=== PATIENT | female | born 1960 | race Hispanic/Latino ===

== ENCOUNTER → 2018-02-15 | Outpatient (CLI) | payer OTHER | END | disposition home or self-care (01) | LOC: RAH 12:14 | PROVIDERS: ATTEND Internal Medicine | DX: M25.561 Pain in right knee (principal); M25.562 Pain in left knee; M79.644 Pain in right finger(s) | CPT/HCPCS: 73140; 73562 ==

== ENCOUNTER → 2018-02-25 | Outpatient (CLI) | payer OTHER | END | disposition home or self-care (01) | LOC: RAH 02-19 13:01 | PROVIDERS: ATTEND Internal Medicine | DX: R92.8 Other abnormal and inconclusive findings on diagnostic imaging of breast (principal) | CPT/HCPCS: 76641; 77065 ==

== ENCOUNTER → 2019-02-11 | Outpatient (CLI) | payer OTHER ==
[~2019-02-11] MED LIST: IOHEXOL 350 MG/ML 100ML INFUS..BTL IV ONE
== END | disposition home or self-care (01) ==
LOC: OIH 10:01
PROVIDERS: ATTEND Internal Medicine
DX: K76.0 Fatty (change of) liver, not elsewhere classified (principal); Z90.49 Acquired absence of other specified parts of digestive tract
CPT/HCPCS: 74177; Q9967

== ENCOUNTER → 2019-05-20 | Outpatient (CLI) | payer OTHER | END | disposition home or self-care (01) | LOC: RAH 15:59 | PROVIDERS: ATTEND Internal Medicine | DX: R68.84 Jaw pain (principal); W19.XXXS Unspecified fall, sequela | CPT/HCPCS: 70110 ==

== ENCOUNTER → 2019-06-15 | Outpatient (CLI) | payer OTHER | END | disposition home or self-care (01) | LOC: RAH 09:18 | PROVIDERS: ATTEND Internal Medicine | DX: S89.91XA Unspecified injury of right lower leg, initial encounter (principal); M17.11 Unilateral primary osteoarthritis, right knee; W19.XXXA Unspecified fall, initial encounter; Y93.89 Activity, other specified; Y92.89 Other specified places as the place of occurrence of the external cause; Y99.8 Other external cause status | CPT/HCPCS: 73562 ==

== ENCOUNTER → 2019-06-29 | Outpatient (CLI) | payer OTHER | END | disposition home or self-care (01) | LOC: RAH 10:53 | PROVIDERS: ATTEND Internal Medicine | DX: Z12.31 Encounter for screening mammogram for malignant neoplasm of breast (principal) | CPT/HCPCS: 77067 ==

== ENCOUNTER → 2019-10-19 | Outpatient (CLI) | payer OTHER | END | disposition home or self-care (01) | LOC: RAH 14:30 | PROVIDERS: ATTEND Internal Medicine | DX: I65.23 Occlusion and stenosis of bilateral carotid arteries (principal) | CPT/HCPCS: 93880 ==

== ENCOUNTER → 2019-12-20 | Outpatient (CLI) | payer OTHER | END | disposition home or self-care (01) | LOC: SHCH 10:59 | PROVIDERS: ATTEND Internal Medicine Cardiovascular Disease | DX: I10 Essential (primary) hypertension (principal) | CPT/HCPCS: 93306; 93356 ==

== ENCOUNTER → 2019-12-22 | Outpatient (CLI) | payer OTHER ==
[~2019-12-22] VITALS: Ht 180.3 cm; Wt 88.9 kg
[~2019-12-22] MED LIST changes: +AMINOPHYLLINE 250MG/10 ML VIAL IV ONE; -IOHEXOL 350 MG/ML 100ML INFUS..BTL IV ONE; +REGADENOSON 0.4 MG/5 ML PF SYG IVP SCH
[2019-12-22 11:53] VITALS: BP 183/94
[2019-12-22 11:55] VITALS: BP 186/88
[2019-12-22 11:57] VITALS: BP 181/87
--- NOTE | 2019-12-22 13:04 | NUR ---
PT WAS GIVEN AMINOPHYLLINE 25MG SLOW IV PUSH @ 1153 FOR CHEST PRESSURE OF A 10 AND HEADACHE. BY 1157 ALL SYMPTOMS HAD SUBSIDED. PT WAS INSTRUCTED TO EAT AND RETURN TO THE IMAGING CENTER IN ONE HOUR.
== END | disposition home or self-care (01) ==
LOC: SHCH 08:52
PROVIDERS: ATTEND Internal Medicine Cardiovascular Disease
DX: I25.89 Other forms of chronic ischemic heart disease (principal); I10 Essential (primary) hypertension
CPT/HCPCS: 78452; 93017; 96374; A9500 ×2; J0280; J2785

== ENCOUNTER → 2021-01-02 | Outpatient (CLI) | payer OTHER | END | disposition home or self-care (01) | LOC: RAH 10:31 | PROVIDERS: ATTEND Internal Medicine | DX: Z12.31 Encounter for screening mammogram for malignant neoplasm of breast (principal) | CPT/HCPCS: 77067 ==

== ENCOUNTER → 2021-01-14 | Outpatient (CLI) | payer OTHER | END | disposition home or self-care (01) | LOC: RAH 09:31 | PROVIDERS: ATTEND Internal Medicine Cardiovascular Disease | DX: Z13.6 Encounter for screening for cardiovascular disorders (principal) | CPT/HCPCS: 75571 ==

== ENCOUNTER → 2021-01-17 | Outpatient (CLI) | payer OTHER | END | disposition home or self-care (01) | LOC: SHCH 10:00 | PROVIDERS: ATTEND Internal Medicine Cardiovascular Disease | DX: I65.23 Occlusion and stenosis of bilateral carotid arteries (principal) | CPT/HCPCS: 93880 ==

== ENCOUNTER 2021-03-15 15:46 | Emergency (ER) | payer OTHER ==
[2021-03-15] MEDS ORDERED: CYCLOBENZAPRINE HCL 10 MG TABLET ONE (16:09)
[2021-03-15] MEDS ORDERED: KETOROLAC TROMETHAMINE 30MG/ML ONE (16:09)
[2021-03-15] MEDS ORDERED: SODIUM CHLORIDE 0.9% 50 ML IV ONE (16:10)
[2021-03-15 16:12] LABS: BASOPHILS % (AUTO) 0.8 % (0.0-5.0); EOSINOPHILS % (AUTO) 4.1 % (0.0-8.0); HEMATOCRIT 35.5 % (36-48); MEAN CORPUSCULAR HEMOGLOBIN 28.9 pg (27.0-33.0); MEAN CORPUSCULAR HGB CONC 32.7 g/dL (32.0-36.0); MEAN CORPUSCULAR VOLUME 88.5 fL (79-99); MONOCYTES % (AUTO) 8.5 % (3.0-13.0); NEUTROPHILS % (AUTO) 56.3 % (40.0-77.0); PLATELET COUNT (AUTO) 212 K/uL (130-400); RED BLOOD CELL COUNT(AUTO) 4.01 MIL/uL (4.00-5.50); RED CELL DISTRIBUTION WIDTH 12.3 % (11.0-15.5); WHITE BLOOD COUNT (AUTO) 6.1 K/uL (4.8-10.8)
[2021-03-15 16:28] LABS: CREATININE 1.1 mg/dL (0.5-1.5); POTASSIUM 3.9 mmol/L (3.5-5.1)
[2021-03-15 16:32] LABS: ALBUMIN 4.2 g/dL (3.5-5.0); BILIRUBIN,TOTAL 0.4 mg/dL (0.2-1.0); TOTAL PROTEIN, SERUM 7.7 g/dL (6.0-8.3)
[2021-03-15] MEDS ORDERED: ONDANSETRON ODT 4 MG TAB ONE (17:50)
== END 2021-03-15 18:03 | disposition home or self-care (01) ==
LOC: EDH 15:46
DX: G44.209 Tension-type headache, unspecified, not intractable (principal); I10 Essential (primary) hypertension; E11.9 Type 2 diabetes mellitus without complications; Z90.49 Acquired absence of other specified parts of digestive tract; Z90.710 Acquired absence of both cervix and uterus; Z88.1 Allergy status to other antibiotic agents
CPT/HCPCS: 36415; 70450; 80053; 85025; 96365; 96375; 99284; J1885

== ENCOUNTER → 2021-04-29 | Outpatient (CLI) | payer OTHER | END | disposition home or self-care (01) | LOC: RAH 15:35 | PROVIDERS: ATTEND Internal Medicine | DX: G45.3 Amaurosis fugax (principal) | CPT/HCPCS: 93880 ==

== ENCOUNTER → 2021-05-28 | Outpatient (CLI) | payer OTHER ==
[2021-05-28 16:38] LABS: BILIRUBIN,TOTAL 0.4 mg/dL (0.2-1.0); CREATININE 0.9 mg/dL (0.5-1.5); POTASSIUM 4.4 mmol/L (3.5-5.1); TOTAL PROTEIN, SERUM 7.3 g/dL (6.0-8.3)
== END | disposition home or self-care (01) ==
LOC: LAB 15:51
PROVIDERS: ATTEND Internal Medicine
DX: I65.29 Occlusion and stenosis of unspecified carotid artery (principal); I10 Essential (primary) hypertension
CPT/HCPCS: 36415; 80053

== ENCOUNTER → 2021-05-29 | Outpatient (CLI) | payer OTHER ==
[~2021-05-29] MED LIST changes: -AMINOPHYLLINE 250MG/10 ML VIAL IV ONE; +IOHEXOL-350 75 ML VIAL IV ONE; -REGADENOSON 0.4 MG/5 ML PF SYG IVP SCH
== END | disposition home or self-care (01) ==
LOC: RAH 10:06
PROVIDERS: ATTEND Internal Medicine Cardiovascular Disease
DX: I65.23 Occlusion and stenosis of bilateral carotid arteries (principal); E04.2 Nontoxic multinodular goiter
CPT/HCPCS: 70498; Q9967

== ENCOUNTER → 2021-10-01 | Outpatient (CLI) | payer OTHER | END | disposition home or self-care (01) | LOC: SHCH 15:26 | PROVIDERS: ATTEND Internal Medicine Cardiovascular Disease | DX: I70.293 Other atherosclerosis of native arteries of extremities, bilateral legs (principal) | CPT/HCPCS: 93925 ==

== ENCOUNTER → 2023-02-20 | Outpatient (CLI) | payer OTHER | END | disposition home or self-care (01) | LOC: RAH 12:52 | PROVIDERS: ATTEND Internal Medicine | DX: N64.9 Disorder of breast, unspecified (principal) | CPT/HCPCS: 76641; 77066 ==

== ENCOUNTER → 2023-10-12 | Outpatient (CLI) | payer OTHER | END | disposition home or self-care (01) | LOC: RAH 07:28 | PROVIDERS: ATTEND Internal Medicine | DX: R10.13 Epigastric pain (principal); Z90.49 Acquired absence of other specified parts of digestive tract | CPT/HCPCS: 76700 ==

== ENCOUNTER → 2023-11-05 | Outpatient (CLI) | payer OTHER | END | disposition home or self-care (01) | LOC: SHCH 09:43 | PROVIDERS: ATTEND Internal Medicine Cardiovascular Disease | DX: I87.2 Venous insufficiency (chronic) (peripheral) (principal); I73.9 Peripheral vascular disease, unspecified; I87.1 Compression of vein | CPT/HCPCS: 93925; 93970 ==

== ENCOUNTER → 2024-02-19 | Outpatient (CLI) | payer OTHER | END | disposition home or self-care (01) | LOC: RAH 11:27 | PROVIDERS: ATTEND Pediatrics | DX: Z12.31 Encounter for screening mammogram for malignant neoplasm of breast (principal) | CPT/HCPCS: 77067 ==

== ENCOUNTER → 2024-08-12 | Outpatient (CLI) | payer OTHER | END | disposition home or self-care (01) | LOC: SHCH 09:59 | PROVIDERS: ATTEND Internal Medicine Cardiovascular Disease | DX: I65.23 Occlusion and stenosis of bilateral carotid arteries (principal) | CPT/HCPCS: 93880 ==

== ENCOUNTER → 2025-03-09 | Outpatient (CLI) | payer OTHER ==
--- NOTE | 2025-03-10 10:10 | HMCIMG ---
MAMMO SCREENING BILATERAL HISTORY: Screening mammogram. COMPARISON: 02/19/2024 TECHNIQUE: Bilateral screening mammogram with CAD was performed with craniocaudal and mediolateral oblique projections. FINDINGS: There are scattered areas of fibroglandular density. Asymmetric breast density is seen in the upper outer quadrant of the left breast. There is no evidence of a dominant mass, or suspicious microcalcification. There is no evidence of nipple retraction or skin thickening. IMPRESSION: 1. Stable mammogram. Patient was entered into a reminder system with a target due date for their next mammogram. BI-RADS: CATEGORY 2: BENIGN FINDINGS Recommend monthly self breast exam as well as annual clinical examination. A negative x-ray should not delay biopsy if a dominant or clinically suspicious mass is present, since 8-10% of cancers are not identified by mammography. Dense breasts particularly, may obscure an underlying neoplasm. Some of these may be detected clinically and therefore, clinical examination is an essential part of breast evaluation.
== END | disposition home or self-care (01) ==
LOC: RAH 12:51
PROVIDERS: ATTEND Internal Medicine
DX: Z12.31 Encounter for screening mammogram for malignant neoplasm of breast (principal); R92.323 Mammographic fibroglandular density, bilateral breasts; N64.89 Other specified disorders of breast
CPT/HCPCS: 77067

== ENCOUNTER → 2025-05-09 | Outpatient (CLI) | payer OTHER ==
--- NOTE | 2025-05-22 09:13 | HMCIMG ---
Unilateral left BREAST - DIAGNOSTIC ULTRASOUND INDICATION: Pain to left breast COMPARISON: Prior study from 02/20/2023 is available. TECHNIQUE: A complete breast ultrasound was performed by a group exercise instructor. The ultrasound demonstrated there is no solid or cystic lesion seen. There is ductal ectasia in the retroareolar region. There is to a benign axillary lymph node measuring 1.8 x 0.7 x 1.9 cm. A second lymph node measuring 0.8 x 0.5 x 0.7 cm. FINDINGS: There is no mass, cyst or other architectural distortion. No abnormality is seen. IMPRESSION: Unchanged from prior study with no masses seen. CATEGORY 2: BENIGN FINDINGS Recommend monthly self breast exam as well as annual clinical examination. A negative x-ray should not delay biopsy if a dominant or clinically suspicious mass is present, since 8-10% of cancers are not identified by mammography. Dense breasts particularly, may obscure an underlying neoplasm. Some of these may be detected clinically and therefore, clinical examination is an essential part of breast evaluation.
--- NOTE | 2025-05-22 09:20 | HMCIMG ---
DIGITAL left DIAGNOSTIC MAMMOGRAM Technique: The digital mammographic examination of left breast in craniocaudal, mediolateral oblique views along with CAD was obtained. Ultrasound of the left breast was also performed. History: This is a 64 years year-old female 5,para.3, AB 2. Patient has no family history of breast cancer. Patient complaining of pain. Reference:Prior mammogram from 03/09/2020 02/19/2024, 02/20/2023 are available Breast composition: Breast composition B: There are scattered areas of fibroglandular density. Finding: The digital mammographic examination of left breast in craniocaudal and mediolateral oblique view along with CAD demonstrates focal asymmetry in the left breast upper outer quadrant which ultrasound demonstrate no lesion seen. The remaining breasts has mostly reversible fatty changes.. There is no evidence of any dendritic mass, cluster microcalcification or architectural distortion. The Tomosynthesis demonstrates no lesion seen. The retromammary fat appears to be normal. IMPRESSION: Focal asymmetry in left breast upper outer quadrant otherwise NO RADIOGRAPHIC EVIDENCE OF MALIGNANT CHANGES. WE WOULD RECOMMEND ANNUAL FOLLOW UP WITH TOMOSYNTHESIS UNLESS OTHERWISE CLINICALLY INDICATED. Would also recommend follow up annually of left breast sonogram. FINAL ASSESSMENT: ACR: BI-RAD- 2. Benign: Also a negative assessment; finding(s) benign abnormalities. Management: Routine mammography screening. Likelihood of Cancer: Essentially 0% likelihood of malignancy. NOTE: IF A WORK-UP OF THIS PATIENT LEADS TO A BIOPSY, PLEASE FORWARD A COPY OF THE PATHOLOGY REPORT TO OUR OFFICE REQUIRED BY [employer] AUGUST 09, 1994. A NEGATIVE MAMMOGRAM SHOULD NOT PRECLUDE BIOPSY OF A CLINICALLY PALPABLE SUSPICIOUS MASS, 10% OF BREAST CANCERS ARE MAMMOGRAPHICALLY OCCULT. THIS MAMMOGRAPHY FACILITY IS FULLY ACCREDITED BY THE FOOD AND DRUG [employer]MIN[employer]RATION (FDA). THANK YOU FOR THIS REFERRAL.
== END | disposition home or self-care (01) ==
LOC: RAH 13:25
PROVIDERS: ATTEND Internal Medicine
DX: N64.89 Other specified disorders of breast (principal); N64.4 Mastodynia; R92.322 Mammographic fibroglandular density, left breast
CPT/HCPCS: 76641; 77065

== ENCOUNTER → 2025-08-04 | Outpatient (CLI) | payer OTHER ==
--- NOTE | 2025-08-04 16:23 | HMCIMG ---
US THYROID/NECK HISTORY: NONTOXIC SINGLE THY NODULE TECHNIQUE: Real-time thyroid ultrasound was performed. FINDINGS: Right thyroid lobe measures 3.1 x 1.4 x 1.1 cm.. Both thyroid glands have homogeneous echotexture Left thyroid lobe measures 3.9 x 1.7 x 1.4 cm.. Both thyroid lobes have nodules the largest seen in the upper to midpole of the left thyroid lobe measuring 2.3 x 1.4 x 1.4 cm. The second nodule in the upper to midpole of the left thyroid lobe measuring 1.8 x 1.0 x 1.3 cm. The right thyroid lobe has a nodule in the midpole measuring 1.5 x 0.9 x 1.0 cm. The isthmus also has a solid hypoechoic lesion measuring 0.4 x 0.5 x 0.4 cm. IMPRESSION: Multiple nodules seen in both lower lobes. The largest is amenable on the left lobe for ultrasound-guided Fine needle aspiration TI-RADS code is 4
--- NOTE | 2025-08-04 16:23 | HMCIMG ---
CT MAXILLOFACIAL W/O CONTRAST CLINICAL HISTORY: ACUTE RECURRENT FRONTAL SINUSITIS COMPARISON: None TECHNIQUE: Thin axial images were obtained through the facial bones/orbits without the use of intravenous contrast. Coronal and sagittal reformatted images were also submitted for interpretation. CONTRAST: mL of Isovue FINDINGS: NASAL REGION: The nasal bones, frontal processes of the maxilla, and lamina papyracea are intact. The ethmoid air cells are clear. The nasal septum is not deviated. and the nasal spine is intact. ORBITS: The orbital chandler, floor, roof and rims are intact. The globes are symmetric and intact. There is no dislocation of the lens. Extraocular muscles are symmetric. Retro-ocular soft tissues are clear. ZYGOMA: The zygomatic arch, inferior and lateral orbital rim, and lateral and anterior chandler of the maxilla are intact. MAXILLARY REGION: The alveolar, pterygoid and palatine processes are intact. Maxillary sinuses are clear. MANDIBLE: The symphysis, body and ramus are intact. Coronoid process and alveolar ridges are unremarkable in appearance. No dislocation or fracture of the condyles. SOFT TISSUES: There is no soft tissue swelling or subcutaneous emphysema. The included brain is unremarkable. Visualized portions of the cervical spine look unremarkable. IMPRESSION: No abnormalities identified.
== END | disposition home or self-care (01) ==
LOC: RAH 12:49
PROVIDERS: ATTEND Internal Medicine
DX: E04.2 Nontoxic multinodular goiter (principal); J01.11 Acute recurrent frontal sinusitis
CPT/HCPCS: 70486; 76536

== ENCOUNTER → 2025-09-05 | Outpatient (CLI) | payer OTHER ==
[2025-09-05 08:30] LABS: INR 0.94 (0.85-1.15)
--- NOTE | 2025-09-05 10:45 | NUR ---
U/S GD BILATERAL THYROID FNA PROCEDURE PERFORMED BY DR Kassy SHETH. PUNCTURE SITES LT NECK X2 AND RT NECK X1 AND PATIENT TOLERATED PROCEDURE WELL. SPECIMEN X 12 COLLECTED AND SENT TO LAB. END OF PROCEDURE AT 1015. ASPIRATION NEEDLES REMOVED AND DRESSING APPLIED. NO BLEEDING NOTED. DISCHARGE INSTRUCTIONS GIVEN TO PATIENT AND VERBALIZED UNDERSTANDING. DISCHARGED VIA AMBULATION AT 1045. AAO X3 WITH C/O MILD PAIN TO PUNCTURE SITES.
--- NOTE | 2025-09-06 10:53 | HMCIMG ---
PROCEDURE: Ultrasound-guided right and left thyroid nodules 2 in the left and one on the right fine needle aspiration; dated INDICATION: Bilateral thyroid nodules thyroid nodule. ANESTHESIA: Local, 1% lidocaine plain FINDINGS: Informed consent was obtained. Patient was placed in the supine position prepped and draped in the usual sterile fashion. Under ultrasound guidance, the left lobe thyroid nodule mid pole was localized. Local anesthetic was applied using 1% plain lidocaine. The nodule measured 1.61 x 1.81 x 1.56 maximum dimensions and appears heterogeneously heterogeneous. Fine needle aspiration using coaxial technique with an 18 gauge introducer needle and a 22-gauge aspiration needle was performed under ultrasound guidance. 4 passes were made and reviewed directly by the mechanical engineering technologist, who confirmed adequate cytology. The patient tolerated the procedure well. SPECIMEN: 4 FNA passes, reviewed by advanced manufacturing technician Under ultrasound guidance, the left thyroid nodule lower pole was localized. Local anesthetic was applied using 1% plain lidocaine. The nodule measured 1.8 x 1.0 x 1.3 maximum dimensions and appears heterogeneously heterogeneous. Fine needle aspiration using coaxial technique with an 18 gauge introducer needle and a 22-gauge aspiration needle was performed under ultrasound guidance. 4 passes were made and reviewed directly by the mechanical engineering technologist, who confirmed adequate cytology. The patient tolerated the procedure well. SPECIMEN: 4 FNA passes, reviewed by advanced manufacturing technician Under ultrasound guidance, the right thyroid nodule midpole was localized. Local anesthetic was applied using 1% plain lidocaine. The nodule measured 1.5 x 0.9 x 1.0 maximum dimensions and appears heterogeneously heterogeneous. Fine needle aspiration using coaxial technique with an 18 gauge introducer needle and a 22-gauge aspiration needle was performed under ultrasound guidance. passes were made and reviewed directly by the mechanical engineering technologist, who confirmed adequate cytology. The patient tolerated the procedure well. SPECIMEN: 4 FNA passes, reviewed by advanced manufacturing technician COMPLICATIONS: None. EBL: Minimal. IMPRESSION: Status post ultrasound-guided 2 left nodules and one right nodule fine needle aspiration, sent to pathology for further evaluation. I
== END | disposition home or self-care (01) ==
LOC: RAH 07:43
PROVIDERS: ATTEND Internal Medicine
DX: E04.2 Nontoxic multinodular goiter (principal); E11.9 Type 2 diabetes mellitus without complications; E78.5 Hyperlipidemia, unspecified; I10 Essential (primary) hypertension; Z90.49 Acquired absence of other specified parts of digestive tract; Z98.890 Other specified postprocedural states; Z88.1 Allergy status to other antibiotic agents; Z79.01 Long term (current) use of anticoagulants; Z79.84 Long term (current) use of oral hypoglycemic drugs; Z79.899 Other long term (current) drug therapy
CPT/HCPCS: 10005; 10006; 36415; 76942; 85610; 85730; 88173; 88305